=== PATIENT | male | born 1990 | race Caucasian/White ===

== ENCOUNTER 2016-09-13 21:59 | Emergency (ER) | payer SELFPAY ==
[~2016-09-13] VITALS: Ht 182.9 cm; Wt 72.6 kg
[~2016-09-13 21:59] MED LIST: CYCL10TA2 PO; DM/P295L2 PO; HYDR-2762; NAPR375T3 PO; ONDA4TAB7 PO; OXYC-323 PO
[2016-09-13 22:02] VITALS: BP 118/72
--- NOTE | 2016-09-13 22:32 | PHYS DOC ---
Past Medical History Past Medical History: Other Additional Past Medical Histor: Anger problems, chronic back pain Past Surgical History: Cholecystectomy, Other Additional Past Surgical Histo: Umbilical hernia repair Alcohol Use: Occasionally Drug Use: None Adult General Chief Complaint Chief Complaint: ANKLE PROBLEM HPI HPI Patient is a 26 year old L presents emergency department stating that he was moving a dresser [place]irie today when he went to go down off the ramp off of a [place] and a dresser fell on his left ankle and tib-fib. He has not abrasions noted on the tib-fib and left lateral ankle. He has swelling with redness noted at both areas. Patient has full range of motion of the ankle good cap refill peripheral pulses 2+. Patient has not taken anything for pain and discomfort. Review of Systems Review of Systems Constitutional: Denies fever or chills [] Eyes: Denies change in visual acuity, redness, or eye pain [] HENT: Denies nasal congestion or sore throat [] Respiratory: Denies cough or shortness of breath [] Cardiovascular: No additional information not addressed in HPI [] GI: Denies abdominal pain, nausea, vomiting, bloody stools or diarrhea [] : Denies dysuria or hematuria [] Musculoskeletal: Denies back pain. C/o left tib/fib and left ankle pain Integument: Denies rash or skin lesions [] Neurologic: Denies headache, focal weakness or sensory changes [] Current Medications Current Medications Current Medications Medications (Trade) Dose Ordered Sig/Gallo Start Time Stop Time Status Last Admin Dose Admin Diphtheria/ Tetanus/Acell Pertussis (Boostrix) 0.5 ml ONCE ONCE 09/13/16 23:00 09/13/16 23:01 DC 09/13/16 22:34 0.5 ML Ibuprofen (Motrin) 800 mg 1X ONCE 09/13/16 22:45 09/13/16 22:46 DC 09/13/16 22:34 800 MG Allergies Allergies Allergies Coded Allergies Type Severity Reaction Last Updated Verified iodine Allergy Intermediate Rash. 10/04/15 Yes doxycycline Allergy Mild hives 10/04/15 Yes Physical Exam Physical Exam Constitutional: Well developed, well nourished, no acute distress, non-toxic appearance. [] HENT: Normocephalic, atraumatic, bilateral external ears normal, oropharynx moist, no oral exudates, nose normal. [] Eyes: PERRLA, EOMI, conjunctiva normal, no discharge. [] Neck: Normal range of motion, no tenderness, supple, no stridor. [] Cardiovascular:Heart rate regular rhythm, no murmur [] Lungs & Thorax: Bilateral breath sounds clear to auscultation [] Skin: Warm, dry, no erythema, no rash. [] Back: No tenderness Extremities: Left tib/fib and left lateral ankle tenderness, no cyanosis, no clubbing, ROM intact, no edema. Patient was noted to have an abrasion noted at the left ankle and at the left tib-fib. Bleeding is currently controlled. There does appear to be redness and swelling at least 2 areas as well. Peripheral pulses 2+ cap refill brisk less than 2 seconds. Neurologic: Alert and oriented X 3, normal motor function, normal sensory function, no focal deficits noted. [] Psychologic: Affect normal, judgement normal, mood normal. [] Current Patient Data Vital Signs Vital Signs Date Time Temp Pulse Resp B/P Pulse Ox O2 Delivery O2 Flow Rate FiO2 09/13/16 22:02 97.9 73 16 99 Room Air 97.9 EKG EKG [] Radiology/Procedures Radiology/Procedures [] Course & Med Decision Making Course & Med Decision Making Pertinent Labs and Imaging studies reviewed. (See chart for details) Patient is negative for any bony abnormalities per Dr. Osman. Patient will be placed in Robert wrap and an Air-Stirrup splint with recommendations for ice packs on 20 minutes off 20 minutes several times a day elevation as much as possible. Tylenol or ibuprofen for pain and discomfort. Patient will be provided with Dr. Phan's name to follow-up with if he continues to have pain and discomfort. Recommended wearing the Robert wrap for the next 5-7 days in the Air-Stirrup splint for the next 7-10 days. Patient agrees with discharge instructions treatment regimens and follow-up recommendations. Since symptoms to return back to emergency department been provided. [] Dragon Disclaimer Dragon Disclaimer This electronic medical record was generated, in whole or in part, using a voice recognition dictation system. Departure Departure Impression: Primary Impression: Contusion Additional Impressions: Ankle pain, left Abrasion Disposition: HOME, SELF-CARE Condition: STABLE Referrals: NO PCP (PCP) RU PHAN MD Patient Instructions: Abrasion, [id number], Ankle Pain, Contusion, Easy-to- Read Additional Instructions: Your x-rays were negative for any bony abnormalities. Tylenol or ibuprofen for pain and discomfort. Ice packs on 20 minutes off 20 minutes several times a day. Elevation as much as possible. Wear the Robert wrap for the next 5-7 days, the Air-Stirrup splint for the next 7- 10 days. Follow-up with orthopedic as needed. Return back to emergency department for signs and symptoms of become worse. Problem Qualifiers MEETA RENTERIA RESEARCH INTERVIEWER Sep 13, 2016 22:32
[2016-09-13] MEDS ORDERED: IBUPROFEN 800 MG TABLET. PO ONE (22:45)
[2016-09-13] MEDS ORDERED: DIPHTH,PERTUSS(ACELL),TET TOX 0.5 ML DISP.SYRIN. VAX IM ONE (23:00)
--- NOTE | 2016-09-14 08:29 | RAD ---
Two-view study of the left tibia and fibula History: Pain and swelling and tenderness. Findings: No acute fracture or dislocation or osteolytic process is seen. No periosteal reaction is seen. IMPRESSION: No acute fracture.
--- NOTE | 2016-09-14 08:32 | RAD ---
3 view left ankle study History: Pain and swelling and tenderness Findings: No acute fracture or dislocation or osteolytic process is seen. The mortise ankle joint is intact. IMPRESSION: No acute fracture.
== END 2016-09-13 23:54 | disposition home or self-care (01) ==
LOC: ER 21:59
DX: S90.02XA Contusion of left ankle, initial encounter (principal); G89.29 Other chronic pain; Z88.1 Allergy status to other antibiotic agents; Z91.041 Radiographic dye allergy status; Z90.49 Acquired absence of other specified parts of digestive tract; W20.8XXA Other cause of strike by thrown, projected or falling object, initial encounter; Y93.89 Activity, other specified; Y92.89 Other specified places as the place of occurrence of the external cause; Y99.8 Other external cause status
CPT/HCPCS: 29515; 73590; 73610; 90471; 90715; 99284-25